=== PATIENT | male | born 1975 | race Caucasian/White ===

== ENCOUNTER 2018-10-01 14:56 | Emergency (ER) | payer SELFPAY ==
--- NOTE | 2018-10-01 15:33 | RAD ---
RIGHT FOREARM 2 VIEWS: Date: 10/01/18 HISTORY: Laceration. FINDINGS: Skin disruption is seen along the ventral aspect of the distal forearm. There are tiny metallic forei gn bodies seen within this laceration. No osseous abnormality identified. IMPRESSION: Evidence of skin laceration with foreign material within the laceration seen within the soft tissues. No osseous abnormality. POS: [facility]
[2018-10-01] MEDS ORDERED: Lidocaine 1% w/Epinephrine 1:100K 30 ML VIAL ONE (15:48)
[2018-10-01] MEDS ORDERED: Adacel (T-DAP) 0.5 ML SYRINGE ONE (15:55)
== END 2018-10-01 17:01 | disposition home or self-care (01) ==
LOC: MADERS 14:56
DX: S41.111A Laceration without foreign body of right upper arm, initial encounter (principal); F17.200 Nicotine dependence, unspecified, uncomplicated; W45.8XXA Other foreign body or object entering through skin, initial encounter
CPT/HCPCS: 12032; 90471; 90715; J2001

== ENCOUNTER 2019-04-24 22:45 | Emergency (ER) | payer SELFPAY ==
[~2019-04-24 22:45] MED LIST: Sodium Chloride Irrig Solution 250 ML BOT ONE
[2019-04-24] MEDS ORDERED: Lidocaine 1% 20 ML MDV ONE (23:00)
[2019-04-24] MEDS ORDERED: Bacitracin 1 PK ONE (23:35)
== END 2019-04-24 23:45 | disposition home or self-care (01) ==
LOC: MADERS 22:45
DX: S61.412A Laceration without foreign body of left hand, initial encounter (principal); F17.210 Nicotine dependence, cigarettes, uncomplicated; W26.0XXA Contact with knife, initial encounter
CPT/HCPCS: 12001; J2001

== ENCOUNTER 2019-05-15 13:51 | Emergency (ER) | payer SELFPAY ==
[2019-05-15] MEDS ORDERED: Lidocaine 1% w/Epinephrine 1:100K 20 ML VIAL ONE (14:32)
== END 2019-05-15 15:15 | disposition home or self-care (01) ==
LOC: MADERS 13:51
DX: S71.101A Unspecified open wound, right thigh, initial encounter (principal); W26.8XXA Contact with other sharp object(s), not elsewhere classified, initial encounter
CPT/HCPCS: 12001

== ENCOUNTER 2019-10-26 20:30 | Emergency (ER) | payer SELFPAY ==
[2019-10-26] MEDS ORDERED: Lidocaine 2% w/Epinephrine 1:200K 20 ML VIAL ONE (20:55)
== END 2019-10-26 21:55 | disposition home or self-care (01) ==
LOC: MADERS 20:30
DX: S61.411A Laceration without foreign body of right hand, initial encounter (principal); W26.0XXA Contact with knife, initial encounter
CPT/HCPCS: 12002